=== PATIENT | male | born 1990 | race Two or more races ===

== ENCOUNTER 2025-07-27 22:26 | Emergency (ER) | payer MEDICAID ==
[~2025-07-27] VITALS: Ht 170.2 cm; Wt 78.0 kg
[2025-07-27 22:30] VITALS: BP 116/74; PULSE 80; RESP 18; TEMP 36.8; O2SAT 99
[2025-07-28] MEDS ORDERED: LIDOCAINE HCL 1% 20ML VIAL INFIL ONE (01:00)
[2025-07-28] MEDS ORDERED: BACITRACIN ZINC OINT UDPKT TOP ONE (01:00)
[2025-07-28] MEDS: TETANUS, DIPHTHERIA, PERTUSSIS VAC/PF 0.5ML (>10YR OLD) IM ONE (01:39)
[2025-07-28] MEDS ORDERED: IBUP-1455 MT (02:08)
[2025-07-28] MEDS ORDERED: BO1 TP (02:08)
[2025-07-28] MEDS ORDERED: IBUPROFEN 600MG TABLET PO ONE (02:15)
== END 2025-07-28 02:15 | disposition home or self-care (01) ==
LOC: ER 22:26
DX: S61.412A Laceration without foreign body of left hand, initial encounter (principal); Z79.899 Other long term (current) drug therapy; W19.XXXA Unspecified fall, initial encounter; Y93.89 Activity, other specified; Y92.89 Other specified places as the place of occurrence of the external cause; Y99.8 Other external cause status
CPT/HCPCS: 99283; 12001; 73130; 90715; 90471; J2003